=== PATIENT | female | born 1990 | race Native Hawaiian/Other Pacific Islander ===

== ENCOUNTER 2019-10-03 15:36 | Outpatient (CLI) | payer OTHER | END 2019-10-03 22:31 | disposition home or self-care (01) | LOC: LAB 15:36 | PROVIDERS: Nurse Practitioner Adult Health | DX: L70.0 Acne vulgaris (principal); Z79.899 Other long term (current) drug therapy | CPT/HCPCS: 80061; 80076; 84702 ==